=== PATIENT | female | born 1960 | race Caucasian/White ===

== ENCOUNTER 2016-09-25 10:36 | Inpatient (IN) | payer MEDICARE ==
[2016-09-23 17:56] LABS: BASOPHILS ABSOLUTE 0.04 10/3/uL (0.0-0.16); EOSINOPHILS 0.3 %; EOSINOPHILS ABSOLUTE 0.01 10/3/uL (0.0-0.53); HEMATOCRIT 26.9 % (36.0-48.0); HEMOGLOBIN 8.9 g/dL (12.0-16.0); LYMPHOCYTES 28.9 %; LYMPHOCYTES ABSOLUTE 1.14 10/3/uL (0.67-4.30); MANUAL DIFF NO %; MEAN CORPUS HGB CONC 33.1 g/dL (32.0-36.0); MEAN CORPUSCULAR VOLUME 96.8 fL (80-100); MEAN PLATELET VOLUME 8.9 fL (9.2-13.0); MONOCYTES ABSOLUTE 0.12 10/3/uL (0.21-1.20); NEUTROPHILS 66.8 %; NEUTROPHILS ABSOLUTE 2.63 10/3/uL (2.02-8.40); PLATELET COUNT 476 10/3/uL (150-400); RBC DISTRIBUTION WIDTH 16.7 % (12.0-16.0); RED CELL COUNT 2.78 10/6/uL (4.0-5.6); WHITE BLOOD CELLS 3.9 10/3/uL (4.5-10.5)
[2016-09-23 18:02] LABS: INTERNATIONAL NORMAL RATI 1.2 UNITS (-)
[2016-09-23 18:05] LABS: PROTIME (NOT ORD) 15.2 SEC (12.0-14.5)
[2016-09-23 18:11] LABS: ASCORBIC ACID (UR NOT ORDER) NEG (NEG); BILIRUBIN, URINE NEGATIVE (NEG); KETONE, URINE NEGATIVE (NEG); LEUKOCYTE ESTERASE(NOT OR TRACE (NEG); WBC (NOT ORDERED) (RFLEX) 12 (0-5)
[2016-09-23 18:32] LABS: A/G RATIO 0.8 (0.7-1.9); ALBUMIN 3.1 G/DL (3.5-5.0); ALKALINE PHOSPHATASE 102 U/L (45-117); CALCIUM, SERUM 8.9 MG/DL (8.5-10.4); CHLORIDE, SERUM 108 MMOL/L (96-112); CREATININE 1.39 MG/DL (0.55-1.02); GFR AFRICAN AMERICAN 48 ML/MIN (>=60); GFR NON AFRICAN AMERICAN 42 ML/MIN (>=60); GLUCOSE, SERUM 100 MG/DL (60-99); POTASSIUM, SERUM 3.7 MMOL/L (3.5-5.3); SGOT(AST) 28 U/L (5-40); SGPT(ALT) 25 U/L (5-65); SODIUM, SERUM 139 MMOL/L (135-148); TOTAL BILIRUBIN 0.5 MG/DL (0-1.2); TOTAL PROTEIN 7.1 G/DL (6.0-8.5)
[2016-09-23 18:33] LABS: BUN (BLOOD UREA NITROGEN) 22 MG/DL (6-23); CO2 (CARBON DIOXIDE) 29 MMOL/L (24-34)
--- NOTE | ~2016-09-25 | OP ---
Record Of Operation [facility] [address] [place]. [address] NAME: MADHURI GUARDADO : 56 STATUS : ADM IN PAT#: [id number] AGE: 56 ADM/REG DATE : 09/25/16 MR#: [id number] REPORT SERV DATE: 09/25/16 DICTATED BY: GABRIELA RAMIREZ DATE: 09/25/16 REPORT STATUS : Draft TRANSCRIBED BY: MODL DATE: 09/25/16 DATE OF PROCEDURE: 09/25/2016 PREOPERATIVE DIAGNOSIS: Right knee failed tibial insert. 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 PROCEDURE: Right knee tibial insert revision, extensive lysis of adhesions. 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 DESCRIPTION OF PROCEDURE: The patient was taken to the operating room and placed supine on the table in normal fashion without incident. General anesthetic was induced per the anesthesiologist. The patient was carefully positioned, padded, prepped, and draped in normal sterile fashion. Right lower extremity was exsanguinated. Tourniquet was inflated to 350. A sharp dissection was made through the old incision with electrocautery through the fat. Sharp quad splitting approach was carried out. Medial arthrotomy was made and a benign-appearing fluid was sent for cultures and Gram stain. An abundant arthrofibrotic tissue was released medially. The MCL was pie crusted. It was in such terrible contracted position to be in severe valgus, there was abundant arthrofibrotic debris that was trapped between the lateral femoral condyle and tibial insert when allowed to reduce it. The tibial insert was removed. I then meticulously, tediously, and comprehensively released the medial femoral condyle around posteriorly and medially and did an osteotomy of the medial cortex, pie crusted the MCL and got it out to where there was good medial-lateral balance. Nonetheless, she still had a flexion contracture that was released by releasing posterior capsule directly off the bone. With multiple trial inserts, I opted for a 12.5, which gave the most reasonable balance between the medial-lateral balance just to allow when there is extension. This was then placed and impacted after cleansing the knee with a pulse lavage. The knee was closed in a layered fashion over medium ConstaVac drain placed in a hinged knee brace. COMPLICATIONS: None. SPECIMENS: Cultures. BLOOD LOSS: Trace. WTB/MODL Ophelia Ramirez M.D. / [id number] Record Of Operation [facility] [address] [place]. [address] NAME: MADHURI GUARDADO : 56 STATUS : ADM IN PAT#: [id number] AGE: 56 ADM/REG DATE : 09/25/16 MR#: [id number] REPORT SERV DATE: 09/25/16 DICTATED BY: GABRIELA RAMIREZ DATE: 09/25/16 REPORT STATUS : Draft TRANSCRIBED BY: FANI DATE: 09/25/16 CC: Ophelia Ramirez M.D.
--- NOTE | ~2016-09-25 | DS ---
Discharge Summary [facility] [address] [place]. [address] NAME: MADHURI GUARDADO : 56 STATUS : DIS IN PAT#: [id number] AGE: 56 ADM/REG DATE : 09/25/16 MR#: [id number] REPORT SERV DATE: 10/07/16 DICTATED BY: GABRIELA RAMIREZ DATE: 10/06/16 REPORT STATUS : Draft TRANSCRIBED BY: FANI DATE: 10/06/16 Data Collection from hospitalization DISCHARGE DIAGNOSES: 1. 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 2. Hypertension. 3. Asthma. 4. Obstructive sleep apnea, on CPAP. 5. Osteoarthritis. 6. Rheumatoid arthritis. 7. Fibromyalgia. 8. Depression and anxiety. 9. History of anemia. CONSULTATIONS: None. PROCEDURES PERFORMED: Right knee tibial insert revision, extensive lysis of adhesions, 09/25/2016. PATHOLOGY: Bone and joint, right knee orthopedic hardware, degenerative changes with areas of fibrin deposits on the surface of fibro-tendinous tissue with underlying foreign body response. MEDICATIONS: Cymbalta 60 mg every morning, Colace 100 mg twice daily, ferrous sulfate 300 mg with breakfast and supper, Flonase two sprays each nostril daily, 400 mg twice daily, Lamictal 200 mg at bedtime, Zyrtec 10 mg daily, methotrexate 20 mg every seven days on Thursday, Remeron 45 mg at bedtime, Singulair 10 mg at bedtime, Myrbetriq 50 mg daily, Azulfidine 500 mg twice daily, Spiriva one capsule daily, Theragran tablet without minerals one with breakfast, Coumadin as directed, Advair Diskus one puff twice daily, Plaquenil 200 mg twice daily, DuoNeb one nebulizer as needed, Diovan HCT one at bedtime, ProAir two puffs as needed, Percocet 5/325 one or two every four to six hours as needed. CONDITION AT DISCHARGE: Upon discharge, she did appear to be doing well, had no complaints. DISPOSITION: She had been discharged to home to continue a regular diet with activity as discussed. She was to follow up with me in the office on 10/10/2016. Home Health was in place upon discharge. HOSPITAL COURSE: This 56-year-old female was seen in the clinic for a followup of right knee, status post right total knee revision arthroplasty. Date of surgery was 2011. She had complaints of increased swelling and that her pain was much worse. She had no known injury or trauma. She was now admitted for revision surgery and further treatment. Upon admission to the hospital, she had been taken to the operating room where she did undergo the above procedure. She had tolerated this well and was transferred to the recovery room. On postop day #1, she did appear to be doing well and was in no distress. Her hemoglobin, however, was down to 7.3, hematocrit 22.1. INR was at 1.2. She was evaluated by Physical Therapy. On postop day #2, she had stated that she felt very tired and dizzy when standing. Her hemoglobin had dropped further to 7.0, hematocrit was at 21.1. INR was at 1.3. She did Discharge Summary [address] [place]. [address] NAME: MADHURI GUARDADO : 56 STATUS : DIS IN [facility]#: [id number] AGE: 56 ADM/REG DATE : 09/25/16 MR#: [id number] REPORT SERV DATE: 10/07/16 DICTATED BY: GABRIELA RAMIREZ DATE: 10/06/16 REPORT STATUS : Draft TRANSCRIBED BY: FANI DATE: 10/06/16 undergo transfusion with two units of packed red blood cells and did tolerate this well. She was continued on physical therapy. On postop day #3, post transfusion, her hemoglobin was up to 8.9, hematocrit 27.1 and she did appear to be doing well. She was in no acute distress and her incision looked good. She did continue in stable condition and was then discharged on postop day #4 with the above instructions. Information collected by: Jess Bautista. I submit the above information as my discharge summary. JAVAD/FANI Ophelia Ramirez M.D. / [id number] CC: Uceh Zuñiga M.D.
[~2016-09-25 10:36] MED LIST: ADVAIR INH; ANSAID100 MG OR; COMBIVENT INH; CYMBALTA60 PO; DEMA20 PO; DETROLLA4 PO; DIOVAN HC2 PO; DIOVAN HCT320 MG/25 PO; DOLOPHINE10 MG PO; DUONEB INH; EFFEXOR XR150 MG PO; FLONASE NAS; FLURBIPROFEN100 MG PO; LAMICTAL200 MG PO; MIRALAXPKT PO; MSCONTIN PO; MTX2.5 PO; MUCINEX1200 MG PO; MYRBETRIQ50 MG PO; NEUR600 PO; P20 PO; PERCOCET1 TA4 PO; PLAQ200B PO; PROAIR HFA INH; REMERON45 MG PO; SAS500 PO; SINGULAIR1 PO; SPIRIVA INH; TREXALL15 MG PO; VENTOLIN HFA INH; Vicodin 5/325 PO; XPECT400 MG PO; ZOCOR40 PO; ZYRTEC ALLGY10 MG PO
[2016-09-26 05:16] LABS: HEMOGLOBIN 7.3 g/dL (12.0-16.0)
[2016-09-26 05:19] LABS: HEMATOCRIT 22.1 % (36.0-48.0)
[2016-09-26 05:20] LABS: INTERNATIONAL NORMAL RATI 1.2 UNITS (-); PROTIME (NOT ORD) 15.1 SEC (12.0-14.5)
[2016-09-26 05:30] LABS: CALCIUM, SERUM 9.1 MG/DL (8.5-10.4); CHLORIDE, SERUM 110 MMOL/L (96-112); CO2 (CARBON DIOXIDE) 27 MMOL/L (24-34); CREATININE 1.14 MG/DL (0.55-1.02); GFR AFRICAN AMERICAN 61 ML/MIN (>=60); GFR NON AFRICAN AMERICAN 53 ML/MIN (>=60); GLUCOSE, SERUM 95 MG/DL (60-99); POTASSIUM, SERUM 4.4 MMOL/L (3.5-5.3); SODIUM, SERUM 142 MMOL/L (135-148)
[2016-09-26 05:31] LABS: BUN (BLOOD UREA NITROGEN) 14 MG/DL (6-23)
[2016-09-27 06:20] LABS: BASOPHILS 0.6 %; BASOPHILS ABSOLUTE 0.03 10/3/uL (0.0-0.16); EOSINOPHILS 0.4 %; EOSINOPHILS ABSOLUTE 0.02 10/3/uL (0.0-0.53); HEMATOCRIT 21.1 % (36.0-48.0); IMMATURE GRANULOCYTES 0.6 %; IMMATURE GRANULOCYTES ABSOLUTE 0.03 10/3/uL (0.0-0.11); LYMPHOCYTES 30.1 %; LYMPHOCYTES ABSOLUTE 1.42 10/3/uL (0.67-4.30); MEAN CORPUS HGB CONC 33.2 g/dL (32.0-36.0); MEAN CORPUSCULAR VOLUME 96.3 fL (80-100); MEAN PLATELET VOLUME 8.7 fL (9.2-13.0); MONOCYTES 8.3 %; MONOCYTES ABSOLUTE 0.39 10/3/uL (0.21-1.20); NEUTROPHILS ABSOLUTE 2.82 10/3/uL (2.02-8.40); RBC DISTRIBUTION WIDTH 16.9 % (12.0-16.0); WHITE BLOOD CELLS 4.7 10/3/uL (4.5-10.5)
[2016-09-27 06:22] LABS: PLATELET COUNT 138 10/3/uL (150-400); RED CELL COUNT 2.19 10/6/uL (4.0-5.6)
[2016-09-27 06:23] LABS: MANUAL DIFF NO %
[2016-09-27 06:24] LABS: INTERNATIONAL NORMAL RATI 1.3 UNITS (-); PROTIME (NOT ORD) 15.6 SEC (12.0-14.5)
[2016-09-27 06:28] LABS: BUN (BLOOD UREA NITROGEN) 17 MG/DL (6-23); CALCIUM, SERUM 8.5 MG/DL (8.5-10.4); CHLORIDE, SERUM 109 MMOL/L (96-112); CO2 (CARBON DIOXIDE) 27 MMOL/L (24-34); CREATININE 1.12 MG/DL (0.55-1.02); GFR AFRICAN AMERICAN 63 ML/MIN (>=60); GFR NON AFRICAN AMERICAN 54 ML/MIN (>=60); GLUCOSE, SERUM 98 MG/DL (60-99); POTASSIUM, SERUM 3.7 MMOL/L (3.5-5.3); SODIUM, SERUM 143 MMOL/L (135-148)
[2016-09-28 04:59] LABS: BASOPHILS 0.5 %; BASOPHILS ABSOLUTE 0.03 10/3/uL (0.0-0.16); EOSINOPHILS ABSOLUTE 0.11 10/3/uL (0.0-0.53); IMMATURE GRANULOCYTES 0.5 %; IMMATURE GRANULOCYTES ABSOLUTE 0.03 10/3/uL (0.0-0.11); LYMPHOCYTES 25.4 %; LYMPHOCYTES ABSOLUTE 1.39 10/3/uL (0.67-4.30); MEAN CORPUS HGB CONC 32.8 g/dL (32.0-36.0); MEAN CORPUSCULAR HEMOGLOB 30.9 pg (26.0-34.0); MEAN CORPUSCULAR VOLUME 94.1 fL (80-100); MONOCYTES 7.7 %; MONOCYTES ABSOLUTE 0.42 10/3/uL (0.21-1.20); NEUTROPHILS 63.9 %; RBC DISTRIBUTION WIDTH 18.9 % (12.0-16.0); WHITE BLOOD CELLS 5.5 10/3/uL (4.5-10.5)
[2016-09-28 05:01] LABS: HEMATOCRIT 27.1 % (36.0-48.0); HEMOGLOBIN 8.9 g/dL (12.0-16.0); MANUAL DIFF NO %; PLATELET COUNT 316 10/3/uL (150-400); RED CELL COUNT 2.88 10/6/uL (4.0-5.6)
[2016-09-28 05:05] LABS: INTERNATIONAL NORMAL RATI 1.3 UNITS (-); PROTIME (NOT ORD) 15.9 SEC (12.0-14.5)
[2016-09-28 05:08] LABS: BUN (BLOOD UREA NITROGEN) 18 MG/DL (6-23); CALCIUM, SERUM 8.4 MG/DL (8.5-10.4); CHLORIDE, SERUM 109 MMOL/L (96-112); CO2 (CARBON DIOXIDE) 29 MMOL/L (24-34); CREATININE 1.13 MG/DL (0.55-1.02); GFR AFRICAN AMERICAN 62 ML/MIN (>=60); GFR NON AFRICAN AMERICAN 54 ML/MIN (>=60); GLUCOSE, SERUM 86 MG/DL (60-99); POTASSIUM, SERUM 4.1 MMOL/L (3.5-5.3); SODIUM, SERUM 142 MMOL/L (135-148)
[2016-09-29 07:06] LABS: HEMATOCRIT 26.4 % (36.0-48.0); HEMOGLOBIN 8.7 g/dL (12.0-16.0)
[2016-09-29 07:26] LABS: INTERNATIONAL NORMAL RATI 1.3 UNITS (-); PROTIME (NOT ORD) 16.5 SEC (12.0-14.5)
[2016-09-29] MEDS ORDERED: PCET PO (14:10)
[2016-09-29] MEDS ORDERED: C5 PO (14:10)
== END 2016-09-29 17:07 | disposition home or self-care (01) | DRG 467 ==
LOC: SDC/OF 10:36 → 3SO 17:59
PROVIDERS: Nurse Practitioner Acute Care; Specialist
PROC: 0SRV0JZ Replacement of Right Knee Joint, Tibial Surface with Synthetic Substitute, Open Approach (ICD-10-PCS; 2016-09-25)
PROC: 0SNCXZZ Release Right Knee Joint, External Approach (ICD-10-PCS; 2016-09-25)
PROC: 0SPV0JZ Removal of Synthetic Substitute from Right Knee Joint, Tibial Surface, Open Approach (ICD-10-PCS; principal; 2016-09-25 13:00)
PROC: 30233N1 Transfusion of Nonautologous Red Blood Cells into Peripheral Vein, Percutaneous Approach (ICD-10-PCS; 2016-09-27)
DX: T84.092A Other mechanical complication of internal right knee prosthesis, initial encounter (principal); D62 Acute posthemorrhagic anemia; I10 Essential (primary) hypertension; G47.33 Obstructive sleep apnea (adult) (pediatric); J45.909 Unspecified asthma, uncomplicated; F32.9 Major depressive disorder, single episode, unspecified
CPT/HCPCS: 36415; 71020; 80048; 80053; 81001; 85014; 85018; 85025; 85610; 86850; 86900; 86901; 86920; 87015; 87070; 87075; 87102; 87116; 87205; 87641; 88300; 88304; 88311; 93005; 94640; 97110-GP; 97116-GP; 97161-GP; 97165-GO; 97530-GP; 97535-GO; A9270-GY; C1776; J0690; J1885; J2250; J2270; J2405; J2710; J2795; J3010; J8610; P9016; P9040